=== PATIENT | female | born 1995 | race Hispanic/Latino ===

== ENCOUNTER 2021-04-04 15:25 | Emergency (ER) | payer OTHER ==
--- NOTE | 2021-04-04 18:11 | Emergency Department Report ---
ED General Adult HPI - General Chief complaint: Dyspnea/Respdistress Stated complaint: SOB Time Seen by Provider: 04/04/21 17:36 Source: patient, family Mode of arrival: Ambulatory Limitations: No Limitations - History of Present Illness Initial comments: Patient is a 26-year-old female presents emergency room with complaints of an episode of palpitations that reoccurred earlier this morning. she states that she took her first dose of Flagyl which she was given by her BAG VALVER for bacterial vaginosis, she states approximately 2 hours later she began having the palpitations. Patient states that she has been experiencing palpitations throughout her entire and during her last . She states that she also feels shortness of breath during the palpitations. She denies any symptoms at all currently. She is currently seeing a assemblyman or woman at [facility] in [place] and has an appointment with Dr. Goodwin next month. She states that she had an echocardiogram 3 weeks ago and reports that she wore a Holter monitor for a week and reports both were normal. She denies any cough, nausea, vomiting, diarrhea, hemoptysis, pleuritic chest pain, exertional shortness of breath, leg swelling, calf pain, facial swelling, sensation of throat closing, difficulty swallowing, abd pain, vaginal bleeding. She has an allergy to sulfa. - Related Data Allergies Allergy/AdvReac Type Severity Reaction Status Date / Time Sulfa (Sulfonamide Allergy Hives Verified 04/04/21 16:05 Antibiotics) ED Review of Systems ROS: Stated complaint: SOB Other details as noted in HPI Comment: All other systems reviewed and negative ED Past Medical Hx - Past Medical History Previous Medical History?: No - Surgical History Past Surgical History?: Yes Additional Surgical History: 2 c-sections ED Physical Exam - General Limitations: No Limitations General appearance: alert, in no apparent distress - Head Head exam: Present: atraumatic, normocephalic - Eye Eye exam: Present: normal appearance - ENT ENT exam: Present: mucous membranes moist - Respiratory Respiratory exam: Present: normal lung sounds bilaterally. Absent: respiratory distress, wheezes, rales, rhonchi, stridor, chest wall tenderness, accessory muscle use, decreased breath sounds, prolonged expiratory - Cardiovascular Cardiovascular Exam: Present: regular rate, normal rhythm, normal heart sounds. Absent: systolic murmur, diastolic murmur, rubs, gallop - Neurological Exam Neurological exam: Present: alert, oriented X3 - Psychiatric Psychiatric exam: Present: normal affect, normal mood - Skin Skin exam: Present: warm, dry, intact ED Course Vital Signs 04/04/21 04/04/21 16:08 18:23 Temperature 98.7 F Pulse Rate 114 H 112 H Respiratory 18 18 Rate Blood Pressure 150/54 130/72 [Right] O2 Sat by Pulse 98 97 Oximetry ED Medical Decision Making - Lab Data Result diagrams: 04/04/21 17:46 04/04/21 17:46 Lab Results 04/04/21 04/04/21 04/04/21 Range/Units 17:46 17:46 17:46 WBC 8.0 (4.5-11.0) K/mm3 RBC 3.68 (3.65-5.03) M/mm3 Hgb 12.0 (10.1-14.3) gm/dl Hct 35.3 (30.3-42.9) % MCV 96 (79-97) fl MCH 33 H (28-32) pg MCHC 34 (30-34) % RDW 13.7 (13.2-15.2) % Plt Count 154 (140-440) K/mm3 Lymph % (Auto) 17.3 (13.4-35.0) % Clare % (Auto) 6.2 (0.0-7.3) % Eos % (Auto) 1.1 (0.0-4.3) % Baso % (Auto) 0.4 (0.0-1.8) % Lymph # (Auto) 1.4 (1.2-5.4) K/mm3 Clare # (Auto) 0.5 (0.0-0.8) K/mm3 Eos # (Auto) 0.1 (0.0-0.4) K/mm3 Baso # (Auto) 0.0 (0.0-0.1) K/mm3 Seg Neutrophils % 75.0 H (40.0-70.0) % Seg Neutrophils # 6.0 (1.8-7.7) K/mm3 Sodium 136 L (137-145) mmol/L Potassium 3.7 (3.6-5.0) mmol/L Chloride 100.3 (98-107) mmol/L Carbon Dioxide 24 (22-30) mmol/L Anion Gap 15 mmol/L BUN 4 L (7-17) mg/dL Creatinine 0.5 L (0.6-1.2) mg/dL Estimated GFR > 60 ml/min BUN/Creatinine Ratio 8 % Glucose 95 (65-100) mg/dL Calcium 9.0 (8.4-10.2) mg/dL Magnesium 1.80 (1.7-2.3) mg/dL Total Bilirubin 0.30 (0.1-1.2) mg/dL AST 26 (5-40) units/L ALT 10 (7-56) units/L Alkaline Phosphatase 125 (35-129) units/L Troponin T < 0.010 (0.00-0.029) ng/mL NT-Pro-B Natriuret Pep 19.43 (0-450) pg/mL Total Protein 6.5 (6.3-8.2) g/dL Albumin 3.9 (3.9-5) g/dL Albumin/Globulin Ratio 1.5 % TSH (0.270-4.200) mlU/mL 04/04/21 Range/Units 17:46 WBC (4.5-11.0) K/mm3 RBC (3.65-5.03) M/mm3 Hgb (10.1-14.3) gm/dl Hct (30.3-42.9) % MCV (79-97) fl MCH (28-32) pg MCHC (30-34) % RDW (13.2-15.2) % Plt Count (140-440) K/mm3 Lymph % (Auto) (13.4-35.0) % Clare % (Auto) (0.0-7.3) % Eos % (Auto) (0.0-4.3) % Baso % (Auto) (0.0-1.8) % Lymph # (Auto) (1.2-5.4) K/mm3 Clare # (Auto) (0.0-0.8) K/mm3 Eos # (Auto) (0.0-0.4) K/mm3 Baso # (Auto) (0.0-0.1) K/mm3 Seg Neutrophils % (40.0-70.0) % Seg Neutrophils # (1.8-7.7) K/mm3 Sodium (137-145) mmol/L Potassium (3.6-5.0) mmol/L Chloride (98-107) mmol/L Carbon Dioxide (22-30) mmol/L Anion Gap mmol/L BUN (7-17) mg/dL Creatinine (0.6-1.2) mg/dL Estimated GFR ml/min BUN/Creatinine Ratio % Glucose (65-100) mg/dL Calcium (8.4-10.2) mg/dL Magnesium (1.7-2.3) mg/dL Total Bilirubin (0.1-1.2) mg/dL AST (5-40) units/L ALT (7-56) units/L Alkaline Phosphatase (35-129) units/L Troponin T (0.00-0.029) ng/mL NT-Pro-B Natriuret Pep (0-450) pg/mL Total Protein (6.3-8.2) g/dL Albumin (3.9-5) g/dL Albumin/Globulin Ratio % TSH 1.460 (0.270-4.200) mlU/mL Vital Signs 04/04/21 04/04/21 16:08 18:23 Temperature 98.7 F Pulse Rate 114 H 112 H Respiratory 18 18 Rate Blood Pressure 150/54 130/72 [Right] O2 Sat by Pulse 98 97 Oximetry - EKG Data EKG shows normal: sinus rhythm, axis, intervals, QRS complexes, ST-T waves Rate: tachycardia - Radiology Data Radiology results: report reviewed Ordering Physician: IND[place] PAREKH Date of Service: 04/04/21 Procedure(s): XR chest routine 2V Accession Number(s): [id number] cc: [place] PAREKH Fluoro Time In Minutes: CHEST 2 VIEWS INDICATION / CLINICAL INFORMATION: palpitations, SOB. COMPARISON: None available. FINDINGS: SUPPORT DEVICES: None. HEART / MEDIASTINUM: No significant abnormality. LUNGS / PLEURA: No significant pulmonary or pleural abnormality. No pneumothorax. ADDITIONAL FINDINGS: No significant additional findings. IMPRESSION: 1. No acute findings. Signer Name: Delbert Cabrera MD Signed: 04/04/2021 6:19 PM Workstation Name: [id number] Transcribed By: CW Dictated By: NATHAN CABRERA MD Electronically Authenticated By: NATHAN CABRERA MD Signed Date/Time: 04/04/211818 DD/ 18 TD/TT: - Medical Decision Making Patient is a 26-year-old female presents emergency room with complaints of an episode of palpitations that reoccurred earlier this morning. she states that she took her first dose of Flagyl which she was given by her BAG [employer]VER for bacterial vaginosis, she states approximately 2 hours later she began having the palpitations. Patient states that she has been experiencing palpitations throughout her entire and during her last . She states that she also feels shortness of breath during the palpitations. She denies any symptoms at all currently. She is currently seeing a assemblyman or woman at [facility] in [place] and has an appointment with Dr. Goodwin next month. She s tates that she had an echocardiogram 3 weeks ago and reports that she wore a Holter monitor for a week and reports both were normal. She denies any cough, nausea, vomiting, diarrhea, hemoptysis, pleuritic chest pain, exertional shortness of breath, leg swelling, calf pain, facial swelling, sensation of throat closing, difficulty swallowing, abd pain, vaginal bleeding. She has an allergy to sulfa. Vitals with tachycardia and mildly elevated blood pressure, blood pressure improved upon repeat, heart rate remains mildly elevated. EKGs show sinus tachycardia, otherwise stable. Chest x-ray with no acute process. Labs are stable. Discussed case with Dr. Kulwant Unger, ER attending who agrees wi th outpatient follow-up, patient also advised Dr. Kulwant Unger that she is currently asymptomatic and feeling well. advised pt Please follow-up with your primary care doctor. Follow-up with your BAG [employer]. Please follow-up with your assemblyman or woman. Return to emergency room for any new or worsening symptoms. Critical care attestation.: If time is entered above; I have spent that time in minutes in the direct care of this critically ill patient, excluding procedure time. ED Disposition Clinical Impression: Palpitations Dyspnea Qualifiers: Dyspnea type: unspecified Qualified Code(s): R06.00 - Dyspnea, unspecified Disposition: DC-01 TO HOME OR SELFCARE Is pt being admited?: No Does the pt Need Aspirin: No Condition: Stable Instructions: Shortness of Breath, Adult, [id number], Palpitations, Rvuh-[id number] Additional Instructions: Please follow-up with your primary care doctor. Follow-up with your BAG [employer]. Please follow-up with your assemblyman or woman. Return to emergency room for any new or worsening symptoms. Referrals: PRIMARY CARE, [Primary Care Provider] - 2-3 Days SARI GOODWIN MD [Staff Physician] - 2-3 Days your, chemical project engineer [Other] - 2-3 Days Time of Disposition: 18:54 Print Language: GERMAN
[2021-04-04 18:21] LABS: Basophils % (Auto) 0.4 % (0.0-1.8); Eosinophils # (Auto) 0.1 K/mm3 (0.0-0.4); Eosinophils % (Auto) 1.1 % (0.0-4.3); Hematocrit 35.3 % (30.3-42.9); Lymphocytes # (Auto) 1.4 K/mm3 (1.2-5.4); Lymphocytes % (Auto) 17.3 % (13.4-35.0); Mean Corpuscular HGB Conc 34 % (30-34); Mean Corpuscular Volume 96 fl (79-97); Monocytes # (Auto) 0.5 K/mm3 (0.0-0.8); Monocytes % (Auto) 6.2 % (0.0-7.3); Platelet Count 154 K/mm3 (140-440); Red Blood Count 3.68 M/mm3 (3.65-5.03); Red Cell Distribution Width 13.7 % (13.2-15.2)
--- NOTE | 2021-04-04 18:23 | XRay Report ---
CHEST 2 VIEWS INDICATION / CLINICAL INFORMATION: palpitations, SOB. COMPARISON: None available. FINDINGS: SUPPORT DEVICES: None. HEART / MEDIASTINUM: No significant abnormality. LUNGS / PLEURA: No significant pulmonary or pleural abnormality. No pneumothorax. ADDITIONAL FINDINGS: No significant additional findings. IMPRESSION: 1. No acute findings. Signer Name: Delbert Cabrera MD Signed: 04/04/2021 6:19 PM Workstation Name: [id number]
[2021-04-04 18:25] VITALS: BP 130/72
[2021-04-04 18:35] LABS: Alanine Aminotransferase 10 units/L (7-56); Albumin 3.9 g/dL (3.9-5); Blood Urea Nitrogen 4 mg/dL (7-17); Hemolysis Index 5
[2021-04-04 18:37] LABS: BUN/Creatinine Ratio 8
--- NOTE | 2021-04-06 14:23 | Electrocardiograph Report ---
[facility] Test Date: 2021-04-04 Test Time: 18:16:05 Pat Name: DYLAN GARCIA Department: Room: Gender: F Commander Internal Affairs: NEHEMIAH : 1995 Requested By: JODI QUACH Order Number: [id number] Reading MD: Angelina Mirza Measurements Intervals [place] Rate: 113 P: 46 [place]: 125 QRS: 84 QRSD: 90 T: 16 QT: 319 QTc: 437 Interpretive Statements Sinus tachycardia No previous ECG available for comparison Electronically Signed On 04-06-2021 14:23:38 EDT by Angelina Mirza
== END 2021-04-04 19:05 | disposition home or self-care (01) ==
LOC: ED 15:25
DX: R00.2 Palpitations (principal); R06.00 Dyspnea, unspecified; Z88.2 Allergy status to sulfonamides; Z98.890 Other specified postprocedural states
CPT/HCPCS: 36415; 71046; 80053; 83735; 83880; 84443; 84484; 85025; 93005